=== PATIENT | female | born 1965 | race African-American/Black ===

== ENCOUNTER 2018-04-22 13:56 | Inpatient (IN) | payer MEDICAID, OTHER ==
[~2018-04-22] VITALS: Ht 154.9 cm; Wt 48.5 kg
[2018-04-22] MEDS ORDERED: IPRATROPIUM BROMIDE (0.02%) 0.5MG/2.5ML NEB HHN STA (15:06)
[2018-04-22] MEDS ORDERED: METHYLPREDNISOLONE SOD SUCC 125 MG/2 ML VIAL IV STA (15:06)
[2018-04-22] MEDS ORDERED: ALBUTEROL (0.083%) 2.5MG/3ML NEB HHN STA ×3 (15:06→17:07)
[2018-04-22 15:07] LABS: CHLORIDE 107 mEq/L (98-107)
[2018-04-22 15:11] LABS: BASOPHILS % 0.4 % (0.0-2.0); EOSINOPHILS % 8.9 % (0.0-5.0); HEMATOCRIT. 40.3 % (36.0-48.0); HEMOGLOBIN. 13.6 g/dL (12.0-16.0); LYMPHOCYTES % 32.4 % (20.0-50.0); MEAN CORPUSCULAR VOLUME 91.7 fL (81.0-99.0); MEAN PLATELET VOLUME 8.9 fl (7.4-10.4); MONOCYTES % 9.7 % (2.0-8.0); NEUTROPHILS % 48.6 % (40.0-76.0); PLATELET 266 x1000/uL (130-400); RED BLOOD CELL COUNT 4.39 mill/uL (4.2-5.4); RED CELL DISTRIBUTION WIDTH 13.7 % (11.6-14.6)
[2018-04-22] MEDS ORDERED: ALBUTEROL (0.5%) 2.5MG/0.5ML NEB HHN ONE (16:16)
[2018-04-22] MEDS ORDERED: ACETAMINOPHEN 325MG TABLET PO ONE (17:45)
[2018-04-22] MEDS ORDERED: IPRATROPIUM/ALBUTEROL 0.5-3(2.5)MG/3ML NEB HHN PRN (20:15)
[2018-04-22] MEDS ORDERED: ONDANSETRON HCL 4MG/2ML INJ IV PRN (20:15)
[2018-04-23] VITALS (7 sets, daily range): BP systolic 131–154; BP diastolic 70–98
[2018-04-23] MEDS: IPRATROPIUM/ALBUTEROL 0.5-3(2.5)MG/3ML NEB HHN SCH ×6 (00:34→22:29)
[2018-04-23] MEDS: METHYLPREDNISOLONE SOD SUCC 40 MG/ML VIAL IV SCH ×3 (02:50→15:31)
[2018-04-23] MEDS: ACETAMINOPHEN 325MG TABLET PO PRN ×2 (02:54→08:09)
[2018-04-23 08:01] LABS: CHLORIDE 108 mEq/L (98-107)
[2018-04-23] MEDS: GUAIFENESIN 600MG ER TABLET PO SCH ×2 (08:05→21:19)
[2018-04-23] MEDS: GUAIFENESIN-DM 200MG-20MG/10ML UDC PO PRN ×2 (08:05→15:31)
[2018-04-23 08:06] LABS: BASOPHILS % 0.2 % (0.0-2.0); HEMATOCRIT. 39.3 % (36.0-48.0); HEMOGLOBIN. 13.3 g/dL (12.0-16.0); LYMPHOCYTES % 11.4 % (20.0-50.0); MEAN CORPUSCULAR HEMOGLOBIN 30.9 pg (28.0-32.0); MEAN CORPUSCULAR VOLUME 91.4 fL (81.0-99.0); MEAN PLATELET VOLUME 8.6 fl (7.4-10.4); NEUTROPHILS % 86.4 % (40.0-76.0); PLATELET 273 x1000/uL (130-400); RED CELL DISTRIBUTION WIDTH 13.9 % (11.6-14.6)
[2018-04-23] MEDS ORDERED: CLONIDINE 0.1MG TABLET PO PRN (14:15)
[2018-04-23] MEDS: LORATADINE 10MG TABLET PO SCH (15:31)
[2018-04-23] MEDS: IBUPROFEN 600MG TABLET PO PRN (15:32)
[2018-04-23] MEDS: MONTELUKAST SODIUM 10MG TABLET PO SCH (17:44)
[2018-04-23] MEDS ORDERED: ABAC1TAB14 PO (20:13)
[2018-04-23] MEDS ORDERED: TIOT18CA3 IH (20:13)
[2018-04-23 20:28] LABS: CLARITY URINE CLEAR (CLEAR); COLOR URINE YELLOW (YELLOW); KETONES URINE NEGATIVE (NEGATIVE); LEUKOCYTE ESTERASE URINE NEGATIVE (NEGATIVE); NITRITE URINE NEGATIVE (NEGATIVE); OCCULT BLOOD URINE TRACE (NEGATIVE); PH URINE 6.5 (4.5-8.0); PROTEIN URINE 1+ (NEGATIVE); UROBILINOGEN URINE 0.2 E.U./dL (0.2-1.0)
[2018-04-23 20:36] LABS: *AMPHETAMINES SCREEN URINE NEGATIVE (NEGATIVE); *BARBITURATES SCREEN URINE NEGATIVE (NEGATIVE); *BENZODIAZEPINES SCREEN URINE NEGATIVE (NEGATIVE)
[2018-04-23 20:37] LABS: *COCAINE SCREEN URINE PRESUMTIVE POSITIVE (NEGATIVE); CANNABINOID URINE SCREEN NEGATIVE (NEGATIVE); METHADONE URINE SCREEN NEGATIVE (NEGATIVE); OPIATES URINE SCREEN NEGATIVE (NEGATIVE); PHENCYCLIDINE URINE SCREEN NEGATIVE (NEGATIVE)
[2018-04-23] MEDS: FAMOTIDINE 20MG/2ML VIAL IV SCH (21:19)
[2018-04-24] VITALS: BP 133/75
[2018-04-24 02:00] VITALS: BP 133/75
[2018-04-24] MEDS: IPRATROPIUM/ALBUTEROL 0.5-3(2.5)MG/3ML NEB HHN SCH ×6 (02:38→21:58)
[2018-04-24 08:00] VITALS: BP 142/84
[2018-04-24] MEDS: GUAIFENESIN 600MG ER TABLET PO SCH ×2 (08:26→20:37)
[2018-04-24] MEDS: LORATADINE 10MG TABLET PO SCH (08:26)
[2018-04-24] MEDS: METHYLPREDNISOLONE SOD SUCC 40 MG/ML VIAL IV SCH ×4 (08:26→23:29)
[2018-04-24] MEDS: GUAIFENESIN-DM 200MG-20MG/10ML UDC PO PRN (08:26)
[2018-04-24] MEDS: FAMOTIDINE 20MG/2ML VIAL IV SCH ×2 (08:26→20:37)
[2018-04-24] MEDS: IBUPROFEN 600MG TABLET PO PRN (10:38)
[2018-04-24 12:00] VITALS: BP 148/88
[2018-04-24 12:00] LABS: BASOPHILS % 0.2 % (0.0-2.0); EOSINOPHILS % 0.1 % (0.0-5.0); HEMATOCRIT. 38.7 % (36.0-48.0); HEMOGLOBIN. 12.9 g/dL (12.0-16.0); MEAN CORPUSCULAR HEMOGLOBIN 30.3 pg (28.0-32.0); MEAN CORPUSCULAR VOLUME 90.6 fL (81.0-99.0); MEAN PLATELET VOLUME 8.4 fl (7.4-10.4); MONOCYTES % 4.4 % (2.0-8.0); NEUTROPHILS % 87.3 % (40.0-76.0); PLATELET 310 x1000/uL (130-400); RED BLOOD CELL COUNT 4.27 mill/uL (4.2-5.4); RED CELL DISTRIBUTION WIDTH 13.8 % (11.6-14.6)
[2018-04-24 12:21] LABS: CHLORIDE 107 mEq/L (98-107)
[2018-04-24 15:59] VITALS: BP 150/91
[2018-04-24] MEDS ORDERED: AZITHROMYCIN 500 MG TABLET PO NR (16:00)
[2018-04-24] MEDS: MONTELUKAST SODIUM 10MG TABLET PO SCH (16:08)
[2018-04-24 20:00] VITALS: BP 146/82
[2018-04-25] VITALS: BP 135/78
[2018-04-25] MEDS: IPRATROPIUM/ALBUTEROL 0.5-3(2.5)MG/3ML NEB HHN SCH ×6 (01:07→19:56)
[2018-04-25 04:00] VITALS: BP 142/85
[2018-04-25 08:00] VITALS: BP 130/87
[2018-04-25] MEDS: METHYLPREDNISOLONE SOD SUCC 40 MG/ML VIAL IV SCH ×2 (08:44→18:38)
[2018-04-25] MEDS: FAMOTIDINE 20MG/2ML VIAL IV SCH ×2 (08:44→21:07)
[2018-04-25] MEDS: LORATADINE 10MG TABLET PO SCH (08:44)
[2018-04-25] MEDS: GUAIFENESIN 600MG ER TABLET PO SCH ×2 (08:45→21:07)
[2018-04-25] MEDS: AZITHROMYCIN 250 MG TABLET PO SCH (08:45)
[2018-04-25 09:05] LABS: ABSOLUTE LYMPHOCYTES 1.2 x10E3/uL (0.7-3.1); ABSOLUTE MONOCYTES 0.6 x10E3/uL (0.1-0.9); ABSOLUTE NEUTROPHILS 10.8 x10E3/uL (1.4-7.0); BASOPHILS 0 % (Not Estab.); HEMATOCRIT 37.8 % (34.0-46.6); HEMOGLOBIN 12.9 g/dL (11.1-15.9); IMMATURE GRANULOCYTES 1 % (Not Estab.); IMMATURE GRANULOCYTES ABSOLUTE 0.1 x10E3/uL (0.0-0.1); LYMPHOCYTES 10 % (Not Estab.); MEAN CORPUSCULAR HEMOGLOBIN 31.6 pg (26.6-33.0); MEAN CORPUSCULAR HGB CONC. 34.1 g/dL (31.5-35.7); MEAN CORPUSCULAR VOLUME 93 fL (79-97); MONOCYTES 5 % (Not Estab.); NEUTROPHILS 84 % (Not Estab.); PLATELETS 357 x10E3/uL (150-379); RBC 4.08 x10E6/uL (3.77-5.28); RED CELL DISTRIBUTION WIDTH 13.6 % (12.3-15.4); WBC 12.7 x10E3/uL (3.4-10.8)
[2018-04-25] MEDS ORDERED: TERBUTALINE SULFATE 1MG/ML VIAL SUBCUT NR (10:45)
[2018-04-25 12:00] VITALS: BP 142/82
[2018-04-25 13:06] LABS: % CD 3 POS. LYMPHOCYTES 76.4 % (57.5-86.2); % CD 4 POS. LYMPHOCYTES 18.1 % (30.8-58.5); % CD 8 POS. LYMPH 57.6 % (12.0-35.5); ABSOLUTE CD 3 917 /uL (622-2402); ABSOLUTE CD 4 HELPER 217 /uL (359-1519); ABSOLUTE CD 8 SUPPRESSOR 691 /uL (109-897); CD4/CD8 RATIO 0.31 (0.92-3.72)
[2018-04-25 16:00] VITALS: BP 118/74
[2018-04-25] MEDS: MONTELUKAST SODIUM 10MG TABLET PO SCH (18:38)
[2018-04-25] MEDS: IBUPROFEN 600MG TABLET PO PRN (19:13)
[2018-04-25 20:50] VITALS: BP 136/89
[2018-04-26] VITALS: BP 132/93
[2018-04-26] MEDS: IPRATROPIUM/ALBUTEROL 0.5-3(2.5)MG/3ML NEB HHN SCH ×4 (00:15→12:31)
[2018-04-26] MEDS: METHYLPREDNISOLONE SOD SUCC 40 MG/ML VIAL IV SCH ×2 (01:00→08:32)
[2018-04-26 04:00] VITALS: BP 148/91
[2018-04-26 08:14] VITALS: BP 117/78
[2018-04-26] MEDS: LORATADINE 10MG TABLET PO SCH (08:32)
[2018-04-26] MEDS: AZITHROMYCIN 250 MG TABLET PO SCH (08:32)
[2018-04-26] MEDS: FAMOTIDINE 20MG/2ML VIAL IV SCH (08:32)
[2018-04-26] MEDS: GUAIFENESIN 600MG ER TABLET PO SCH (08:32)
[2018-04-26 11:22] VITALS: BP 117/78
[2018-04-26 12:00] VITALS: BP 135/88
== END 2018-04-26 14:21 | disposition home or self-care (01) | DRG 816 ==
LOC: ER 16:15 → ENRESERV 21:19 → 6WST 23:48
PROVIDERS: ADMIT Internal Medicine; ATTEND Internal Medicine
DX: T40.5X1A Poisoning by cocaine, accidental (unintentional), initial encounter (principal); J96.00 Acute respiratory failure, unspecified whether with hypoxia or hypercapnia; J44.1 Chronic obstructive pulmonary disease with (acute) exacerbation; E44.1 Mild protein-calorie malnutrition; J45.901 Unspecified asthma with (acute) exacerbation; J68.0 Bronchitis and pneumonitis due to chemicals, gases, fumes and vapors; F14.90 Cocaine use, unspecified, uncomplicated; F17.210 Nicotine dependence, cigarettes, uncomplicated; M94.0 Chondrocostal junction syndrome [Tietze]; Z79.899 Other long term (current) drug therapy; Z71.6 Tobacco abuse counseling; Y92.89 Other specified places as the place of occurrence of the external cause; Z87.09 Personal history of other diseases of the respiratory system; Z68.20 Body mass index [BMI] 20.0-20.9, adult
CPT/HCPCS: 36415; 71045; 80048; 80305; 83880; 84484; 86359; 86360; 87070; 87077; 87804; 93005; 93970; 94640; 94644; 96374; 99291; J2920; J2930; J3105; J3490; J7611; J7620